=== PATIENT | female | born 1975 | race Two or more races ===

== ENCOUNTER 2021-10-01 07:46 | Day surgery (SDC) | payer MEDICAID ==
[2021-09-26 11:49] LABS: Urine WBC None Seen /hpf (0 - 5)
[2021-09-26 12:03] LABS: Basophils # (auto) 0.1 10 ^3/uL (0-0.2); Basophils % (auto) 0.9 % (0.0-2.0); Eosinophils # (auto) 0.1 10 ^3/uL (0-0.8); Eosinophils % (auto) 1.2 % (0.0-7.0); Hematocrit 38.9 % (36.0-46.0); Hemoglobin 13.3 g/dL (12.2-16.2); Lymphocytes # (auto) 2.4 10 ^3/uL (0.4-5.4); Lymphocytes % (auto) 41.9 % (10.0-50.0); Mean Corpuscular Hemoglobin 30.7 pg (28.0-32.0); Mean Corpuscular Hgb Conc. 34.3 g/dL (32.0-36.0); Mean Corpuscular Volume 89.6 fL (80.0-100.0); Monocytes # (auto) 0.4 10 ^3/uL (0-1.3); Monocytes % (auto) 7.3 % (0.0-12.0); Neutrophils # (auto) 2.8 10 ^3/uL (1.6-8.6); Neutrophils % (auto) 48.7 % (37.0-80.0); Nucleated Red Blood Cells % 0.1 %; Red Blood Cells 4.34 10^6/uL (4.0-5.20); Red Cell Distribution Width 12.6 % (11.8-14.3); White Blood Cell 5.7 10^3/uL (4.4-10.8)
[2021-09-26 12:07] LABS: Urine Bacteria FEW /hpf (None Seen); Urine Blood Negative /uL (Negative); Urine Specific Gravity 1.006 (1.001-1.035)
[2021-09-26 12:12] LABS: INR 1.01 (0.9-1.15); Partial Thromboplastin Time 25.4 sec (24.6-33.4)
[2021-09-26 12:26] LABS: Albumin 3.8 g/dL (3.4-5.0); BUN/Creatinine Ratio 14.3; Calcium 9.2 mg/dL (8.5-10.1); Potassium 4.7 mmol/L (3.5-5.1)
[2021-09-26 12:28] LABS: Bilirubin, Total 0.5 mg/dL (0.2-1.0); Total Protein 7.2 g/dL (6.4-8.2)
[~2021-10-01] VITALS: Ht 157.5 cm; Wt 73.5 kg
[2021-10-01] MEDS ORDERED: ceFAZolin 1GM VL ONE (08:27)
[2021-10-01] MEDS ORDERED: BUPIVACAINE 0.25% INJ 50ML VIAL ONE (08:27)
[2021-10-01] MEDS ORDERED: ceFAZolin 1GM/50ML 100 ML IV ONE (08:42)
[2021-10-01] MEDS ORDERED: MIDAZOLAM HCL 2MG/2ML 2ml VIAL (1mg/ml) ONE (09:46)
[2021-10-01] MEDS ORDERED: fentaNYL CITRATE 100 MCG/2 ML VL ONE (09:46)
[2021-10-01] MEDS ORDERED: PROPOFOL 10 MG/ML 20 ML IV ONE ×2 (09:51→10:02)
[2021-10-01] MEDS ORDERED: ONDANSETRON HCL 4 MG/2 ML VIAL ONE (10:02)
[2021-10-01] MEDS ORDERED: LIDOCAINE 2% (LOCAL ANESTH.) PF 5ml SDV ONE (10:02)
[2021-10-01] MEDS ORDERED: LIDOCAINE 2% JELLY 11ml (GLYDO) ONE (10:04)
[2021-10-01] MEDS ORDERED: LIDOCAINE 1% (LOCAL ANESTH.) PF 5ml SDV ONE (10:04)
[2021-10-01] MEDS ORDERED: HYDROmorphone HCL 2 MG/ML VL/or syr IV PRN ×2 (11:00)
[2021-10-01] MEDS ORDERED: ONDANSETRON HCL 4 MG/2 ML VIAL IV PRN (11:00)
[2021-10-01] MEDS ORDERED: METOCLOPRAMIDE HCL 5MG/ml INJ 2ml VIAL IV ONE (11:25)
[2021-10-01] MEDS ORDERED: METOCLOPRAMIDE HCL 5MG/ml INJ 2ml VIAL ONE (11:27)
[2021-10-01 12:05] VITALS: BP 126/71
== END 2021-10-01 12:30 | disposition home or self-care (01) ==
LOC: SUR 07:46
PROVIDERS: ATTEND Podiatrist
DX: M20.11 Hallux valgus (acquired), right foot (principal); Z98.890 Other specified postprocedural states; Z79.899 Other long term (current) drug therapy; Z20.822 Contact with and (suspected) exposure to COVID-19
CPT/HCPCS: 28296; 36415; 80053; 81001; 81025; 84702; 85025; 85610; 85730; C1713; J0690; J2001; J2250; J2405; J2704; J2765; J3010; J3490; U0003

== ENCOUNTER 2021-10-17 13:38 | Emergency (ER) | payer MEDICAID ==
[~2021-10-17] VITALS: Ht 157.5 cm; Wt 75.9 kg
[2021-10-17] MEDS ORDERED: CLIN150C PO (17:04)
[2021-10-17 19:00] VITALS: BP 124/76
== END 2021-10-17 19:02 | disposition home or self-care (01) ==
LOC: ER 13:38
DX: L03.115 Cellulitis of right lower limb (principal); Z48.817 Encounter for surgical aftercare following surgery on the skin and subcutaneous tissue; Z79.2 Long term (current) use of antibiotics
CPT/HCPCS: 73700